=== PATIENT | male | born 1930 | race Caucasian/White ===

== ENCOUNTER → 2016-03-21 | Outpatient (CLI) | payer MEDICARE, OTHER ==
[~2016-03-21] MED LIST: CIPRO PO; PRILOSEC 20MG20 MG PO; PROSCAR
== END ==
LOC: COL.RAD 03-20 09:45
DX: K74.69 Other cirrhosis of liver (principal)

== ENCOUNTER → 2016-11-14 | Outpatient (CLI) | payer MEDICARE, OTHER ==
[~2016-11-14] MED LIST changes: +AMBIEN 5MG TABLE5 MG PO; +ZOFRAN 4MG T4 MG/TAB PO
== END ==
LOC: COL.RAD 10:23
DX: K74.69 Other cirrhosis of liver (principal); N28.1 Cyst of kidney, acquired

== ENCOUNTER → 2017-05-14 | Outpatient (CLI) | payer MEDICARE, OTHER ==
[~2017-05-14] MED LIST changes: -AMBIEN 5MG TABLE5 MG PO; -ZOFRAN 4MG T4 MG/TAB PO
== END ==
LOC: COL.RAD 10:55
DX: N28.1 Cyst of kidney, acquired (principal); R93.2 Abnormal findings on diagnostic imaging of liver and biliary tract

== ENCOUNTER → 2017-10-23 | Outpatient (CLI) | payer MEDICARE, OTHER | LOC: COL.RAD 14:29 | DX: K74.60 Unspecified cirrhosis of liver (principal); N28.1 Cyst of kidney, acquired; R16.1 Splenomegaly, not elsewhere classified ==

== ENCOUNTER → 2018-04-29 | Outpatient (CLI) | payer MEDICARE, OTHER | LOC: COL.RAD 12:27 | DX: K74.69 Other cirrhosis of liver (principal); K76.6 Portal hypertension; N28.1 Cyst of kidney, acquired; Z90.49 Acquired absence of other specified parts of digestive tract ==

== ENCOUNTER 2018-08-01 19:54 | Emergency (ER) | payer MEDICARE, OTHER ==
[~2018-08-01] VITALS: Ht 170.2 cm; Wt 90.9 kg
[2018-08-01 19:56] VITALS: TEMP 97.8
[2018-08-01 20:45] LABS: BASO % 0.2 % (0.0-2.0); EOS # 0.1 (0.0-0.7); GRAN # 4.1 (1.4-6.5); GRAN % 70.8 % (42.2-75.2); HEMATOCRIT 47.8 % (42.0-52.0); HEMOGLOBIN 16.4 g/dl (13.5-18.0); LYMPH % 16.9 % (20.0-51.0); MEAN CELL VOLUME 100 fl (80.0-100.0); MEAN CORPUSCULAR HEMOGLOBIN 34 pg (27.0-31.0); MEAN CORPUSCULAR HGB CONC 34 g/dl (33.0-37.0); MONO # 0.6 (0.1-0.6); MONO % 10.8 % (1.7-9.3); PLATELET COUNT 69 K/mm3 (130-400); RED BLOOD COUNT 4.78 M/mm3 (4.20-5.60)
[2018-08-01 20:49] LABS: COLLECTION METHOD CLEAN CATCH
[2018-08-01 20:55] LABS: ALANINE AMINOTRANSFERASE 58 U/L (21-72); ALBUMIN 3.6 gm/dL (3.5-5.0); ALKALINE PHOSPHATASE 157 U/L (50-136); ANION GAP 11 mmol/L (7-16); AST,SGOT 99 U/L (15-37); BLOOD UREA NITROGEN 23 mg/dL (9-20); CALCIUM 8.9 mg/dL (8.4-10.2); CARBON DIOXIDE 24 mmol/L (22-30); CHLORIDE 105 mmol/L (98-107); GLUCOSE 126 mg/dL (74-106); LIPASE 185 U/L (23-300); POTASSIUM 4.3 mmol/L (3.4-5.0); SODIUM 140 mmol/L (137-145); TOTAL PROTEIN 7.5 gm/dL (6.4-8.2)
[2018-08-01 21:02] LABS: MUCOUS Present /lpf; PH 6 (5-8); SQUAMOUS EPITHELIAL None Seen /hpf; URINE APPEARANCE Clear; URINE BACTERIA None Seen /hpf; URINE BILIRUBIN Negative (NEGATIVE); URINE BLOOD 1+ (NEGATIVE); URINE COLOR Yellow; URINE GLUCOSE Negative (NEGATIVE); URINE KETONE Negative (NEGATIVE); URINE LEUKOCYTE ESTERASE Negative (NEGATIVE); URINE NITRATE Negative (NEGATIVE); URINE PROTEIN(semi-quant) Negative (NEGATIVE); URINE UROBILINOGEN >=4.0 mg/dL (NEGATIVE)
[2018-08-01 21:10] LABS: TROPONIN-I < 0.012 ng/mL (0.000-0.035)
[2018-08-01] MEDS ORDERED: AMBIEN 5MG TABLE5 MG PO (22:05)
[2018-08-01 23:15] VITALS: BP 147/75; PULSE 60
[2018-08-01] MEDS ORDERED: ZOFRAN 4MG T4 MG/TAB PO (23:19)
== END 2018-08-01 23:40 | disposition home or self-care (01) ==
LOC: COL.ER 19:54
PROVIDERS: Emergency Medicine
DX: R10.12 Left upper quadrant pain (principal); Z98.890 Other specified postprocedural states; Z98.84 Bariatric surgery status
CPT/HCPCS: J7030; Q9967

== ENCOUNTER → 2018-10-12 | Outpatient (CLI) | payer MEDICARE, OTHER ==
[~2018-10-12] MED LIST changes: +AMBIEN 5MG TABLE5 MG PO; +ZOFRAN 4MG T4 MG/TAB PO
== END ==
LOC: COL.RAD 10:19
DX: K74.69 Other cirrhosis of liver (principal); N28.1 Cyst of kidney, acquired